=== PATIENT | male | born 1945 | race Two or more races ===

== ENCOUNTER 2019-11-26 10:27 | Outpatient (CLI) | payer OTHER | END 2019-11-26 10:34 | disposition home or self-care (01) | LOC: LAB 10:27 | DX: R97.20 Elevated prostate specific antigen [PSA] (principal) ==

== ENCOUNTER → 2020-01-28 | Outpatient (CLI) | payer OTHER | END | disposition home or self-care (01) | LOC: SONOGRAMA 07:18 | DX: R97.20 Elevated prostate specific antigen [PSA] (principal) ==

== ENCOUNTER 2020-03-17 12:08 | Inpatient (IN) | payer OTHER ==
[~2020-03-17] VITALS: Ht 172.7 cm; Wt 83.0 kg
[2020-03-24] MEDS ORDERED: NORVASC10 MG PO (09:03)
[2020-03-24] MEDS ORDERED: ATACAN PO (09:03)
[2020-04-02] MEDS ORDERED: ATACAND32 MG (09:17)
== END 2020-04-04 12:17 | disposition home or self-care (01) | DRG 708 ==
LOC: O/R 04-02 05:30 → SURH 04-02 05:30
PROVIDERS: ADMIT Urology; ATTEND Urology
PROC: 07TC4ZZ Resection of Pelvis Lymphatic, Percutaneous Endoscopic Approach (ICD-10-PCS; 2020-04-02)
PROC: 0VT04ZZ Resection of Prostate, Percutaneous Endoscopic Approach (ICD-10-PCS; principal; 2020-04-02 07:00)
DX: C61 Malignant neoplasm of prostate (principal)